=== PATIENT | female | born 1995 | race Caucasian/White ===

== ENCOUNTER 2019-10-14 05:32 | Emergency (ER) | payer OTHER, SELFPAY ==
[2019-10-14 05:51] VITALS: BP 117/86; PULSE 76; RESP 16; TEMP 36.5; O2SAT 100; BMI 18.8
--- NOTE | 2019-10-14 05:59 | CT_ITS ---
PROCEDURE: CT CHEST WO CON CLINICAL INDICATION: sternum trauma Posttraumatic pain, sternal injury with pain COMPARISON: No exams were available for comparison TECHNIQUE: Axial images obtained with sagittal and coronal reformats. All CT scans at the facility use one or more dose reduction, viz: automated exposure control, ma/kV adjustment per patient size (including targeted exams where dose is matched to indication, i.e. head), or iterative reconstruction technique. FINDINGS: HEART AND MEDIASTINAL STRUCTURES: Unremarkable. LUNGS AND PLEURAL SPACES: There are small bilateral blebs in the upper lobes BONY STRUCTURES: There is very minimal buckling of the cortex in the mid aspect of the body of the sternum with a faint lucency anteriorly at this region consistent with nondisplaced sternal fracture. There is some mild soft tissue swelling at this region as well. UPPER ABDOMEN: Unremarkable. ADDITIONAL FINDINGS: No other significant abnormalities. IMPRESSION: Nondisplaced fracture involves the mid aspect of the body of the sternum with mild associated soft tissue swelling Dictated by: Florentino Jonas MD 10/14/2019 07:14 Electronically signed by Florentino Jonas MD in [place] 10/14/2019 07:14
--- NOTE | 2019-10-14 06:01 | ECG_ITS ---
APPROVED REPORT Exam: Resting ECG HR:66 bpm ECG Measurements Heart Rate 66 AXES OH 80 P 33 QRSd 86 QRS 84 QT 418 T 72 QTc 438 <Conclusion> Sinus rhythm with short OH RSR' or QR pattern in V1 suggests right ventricular conduction delay Borderline ECG Electronically signed by : Rico Carrasquillo, 10/15/2019 08:27:50
--- NOTE | 2019-10-14 06:01 | PC.NURSE ---
Pt refused IV, chest CT has to be without contrast.
[2019-10-14 06:14] LABS: Microscopic, Urine URINE MICROSCOPIC (MICROSCOPIC)
[2019-10-14 06:15] LABS: Appearance,Urine CLOUDY (Clear); Bilirubin,Urine Negative (Negative); Blood, Urine TRACE-I (Negative); Color,Urine YELLOW (Yellow); Glucose,Urine (UA) Negative (Negative); Ketones,Urine Negative (Negative); Leukocyte Esterase,Urine TRACE (Negative); Nitrate,Urine Negative (Negative); Protein,Urine TRACE (Negative); Specific Gravity, Urine 1.025 (1.005-1.030); Urobilinogen,Urine 0.2 EU/dl (0.2)
[2019-10-14 06:20] LABS: Urine Pregnancy, HCG Qual. Negative (Negative)
[2019-10-14 06:41] LABS: Bacteria,Urine 4+ /lpf; Mucus,Urine 1+ /lpf; WBC,Urine TNTC #/hpf (0-3)
[2019-10-14 07:09] VITALS: BP 117/84; PULSE 84; RESP 14; O2SAT 100
--- NOTE | 2019-10-14 07:12 | [facility].EDCP ---
ED Disposition Clinical Impression: Sternal fracture Qualifiers: Encounter type: initial encounter Sternal location: body of sternum Fracture type: closed Qualified Code(s): S22.22XA - Fracture of body of sternum, initial encounter for closed fracture UTI (urinary tract infection) Qualifiers: Urinary tract infection type: site unspecified Hematuria presence: without hematuria Qualified Code(s): N39.0 - Urinary tract infection, site not specified Disposition: Home, Self-Care Condition on Discharge: Good Instructions: DI for Sternum Fracture Additional Instructions: use advil/tyenol and call pcp about urine culture results Prescriptions: levoFLOXacin [Levaquin 500mg tab] 500 mg PO DAILY 7 Days #7 tab Transmission Status: Sent to [facility] Referrals: Rico Carrasquillo MD [Primary Care Provider] - - Critical Care Critical Care Time: No Attestation: On 10/14/19, the high probability of a clinically significant, sudden or life threatening deterioration of the following system(s) required my full and direct attention, intervention and personal management. The time I documented below is in addition to time spent performing reported procedures but includes the following listed in this critical care notation. Medical Decision Making - Medical Records Medical records reviewed: Yes: I reviewed the patient's medical records. - Gerardo Inquiry Pt receiving controlled substance: No Vital Signs: 10/14/19 05:51 10/14/19 07:09 Temperature 97.7 F Temperature Source Oral Pulse Rate [Right] 76 84 Respiratory Rate 16 14 Blood Pressure [Right Arm] 117/86 117/84 Blood Pressure Mean [Right Arm] 96 95 Blood Pressure Source [Right Arm] Automatic Cuff Automatic Cuff Blood Pressure Position [Right Arm] Sitting 02 Sat by Pulse Oximetry 100 100 Oxygen Delivery Method Room Air Room Air - Lab Data Lab results reviewed: Yes: I reviewed the patient's lab results. Lab Results 10/14/19 05:55: Urine Color Yellow, Urine Appearance Cloudy, Urine pH 6.0, Ur Specific Avis 1.025, Urine Protein Trace, Urine Glucose (UA) Negative, Urine Ketones Negative, Urine Blood Trace-i, Urine Nitrate Negative, Urine Bilirubin Negative, Urine Urobilinogen 0.2, Ur Leukocyte Esterase Trace, Urine RBC 10-20, Urine WBC Tntc, Ur Squamous Epith Cells 5-10, Urine Bacteria 4+, Urine Mucus 1+ 10/14/19 05:55: Urine HCG, Qual Negative Orders (Tests/Meds): ORDERS Category Date Time Status Urine Culture Stat Micro 10/14/19 05:55 Received - CT Data CT Scan: Chest Time Received: 07:[address] Reviewed: Yes: I have viewed the radiologist's interpretation Preliminary Findings: Abnormal (sternal fx ) - ECG Data Tracing #1 Normal Sinus Rhythm: Yes Ischemic changes: non-specific ST-T wave changes Chest Pain HPI - General Chief Complaint: Chest Pain Stated Complaint: AO 10/08/19 15:00 injury to chest Time Seen by Provider: 10/14/19 06:00 Mode of Arrival: Ambulatory Source of Information: Patient, Medical Record Limitations: No Limitations Description of Symptoms (Recalled from ER Triage Doc. by RN): Pt states she got pinned between the gate and the barn by cattle and is having sternum pain - History of Present Illness HPI narrative: last sunday caught between fence and door - has ant chest pain nati with mov - no sob and no other c/o - no abd pain MD complaint: chest pain Onset (ago): day(s) Duration: intermittent Activity at onset: light activity Pain location: other (ant chest ) Severity: moderate Quality: sharp Pain radiation: none Context: trauma/injury Treatments prior to or on arrival for Cardiac Chest Pain: none - Related Data On Oral Contraceptives: No Previous Rx's Medication Instructions Recorded levoFLOXacin [Levaquin 500mg 500 mg PO DAILY 7 Days #7 tab 10/14/19 tab] Allergies Allergy/AdvReac Type Severity Reaction Status Date / Time No Known Allergies Allergy Unverified 04/14/19 09:40
[2019-10-14 07:40] VITALS: BP 122/87; PULSE 75; RESP 20; TEMP 36.8; O2SAT 98
== END 2019-10-14 07:59 | disposition home or self-care (01) ==
PROVIDERS: Emergency Provider Emergency Medicine; PCP Internal Medicine Adolescent Medicine
DX: S22.22XA Fracture of body of sternum, initial encounter for closed fracture (principal); N39.0 Urinary tract infection, site not specified; W23.1XXA Caught, crushed, jammed, or pinched between stationary objects, initial encounter; Y92.71 Barn as the place of occurrence of the external cause; F17.210 Nicotine dependence, cigarettes, uncomplicated
CPT/HCPCS: 71250; 81001; 81025; 87086; 87088; 87186; 93005; 99283